=== PATIENT | male | born 1965 | race Caucasian/White ===

== ENCOUNTER 2018-12-11 22:45 | Emergency (ER) | payer OTHER ==
[~2018-12-11] VITALS: Ht 172.7 cm; Wt 125.0 kg
[2018-12-11 23:17] VITALS: BP 134/86
[2018-12-11] MEDS ORDERED: KETOROLAC TROMETHAMINE 30 MG/ML VIAL IM ONE (23:30)
== END 2018-12-11 23:45 | disposition home or self-care (01) ==
LOC: EDBD 22:46 → EMS 22:46
DX: M76.02 Gluteal tendinitis, left hip (principal); I10 Essential (primary) hypertension
CPT/HCPCS: 96372; 99283; J1885

== ENCOUNTER → 2024-07-03 | Emergency (ER) | payer OTHER ==
[~2024-07-03] VITALS: Ht 180.3 cm; Wt 113.6 kg
[2024-07-04 00:04] VITALS: TEMP 98.6
[2024-07-04] MEDS: METOCLOPRAMIDE HCL 10 MG TABLET PO ONE (01:13)
[2024-07-04] MEDS: ACETAMINOPHEN 500 MG TABLET PO ONE (01:13)
[2024-07-04] MEDS: DiphenhydrAMINE HCL 25 MG CAPSULE PO ONE (01:50)
[2024-07-04 02:20] LABS: BASOPHILS % (AUTO) 1.3 % (0.0-2.0); EOSINOPHILS % (AUTO) 3.6 % (1.0-6.0); HEMATOCRIT 39.3 % (41-53); LYMPHOCYTES # (AUTO) 2.2 K/uL (1.0-4.8); LYMPHOCYTES % (AUTO) 35.4 % (22.0-44.0); MEAN CORPUSCULAR HEMOGLOBIN 35.1 pg (26.0-34.0); MEAN CORPUSCULAR HGB CONC 35.6 G/dL (31.0-37.0); MEAN CORPUSCULAR VOLUME 99 fL (80-100); MONOCYTES # (AUTO) 0.6 K/uL (0.1-1.0); MONOCYTES % (AUTO) 9.7 % (2.0-9.0); NEUTROPHILS # (AUTO) 3.1 K/uL (1.8-7.7); PLATELET COUNT (AUTO) 141 K/uL (150-450); RED BLOOD CELL COUNT(AUTO) 3.98 MIL/uL (4.50-5.90); RED CELL DISTRIBUTION WIDTH 13.2 % (11.5-14.5); WHITE BLOOD COUNT (AUTO) 6.1 K/uL (4.5-11.0)
[2024-07-04 02:27] LABS: ANION GAP 11 mmol/L (8-16); CALCIUM, TOTAL 7.8 mg/dL (8.8-10.5); CARBON DIOXIDE 24 mmol/L (22-29); CHLORIDE 101 mmol/L (98-107); CREATININE 0.67 mg/dL (0.60-1.30); GLOMERULAR FILTR. RATE CALC > 60 mL/min (>60); GLUCOSE,RANDOM 165 mg/dL (70-110); POTASSIUM 3.1 mmol/L (3.5-5.1); SODIUM SERUM 136 mmol/L (136-145); UREA NITROGEN, BLOOD 5 mg/dL (7-18)
[2024-07-04 02:32] LABS: ALBUMIN 2.5 g/dL (3.4-5.0); BILIRUBIN,DIRECT 0.3 mg/dL (0.00-0.20); BILIRUBIN,TOTAL 0.8 mg/dL (0.1-1.0); TOTAL PROTEIN, SERUM 7.1 g/dL (6.4-8.2)
[2024-07-04] MEDS: POTASSIUM CHLORIDE 20 MEQ ER TABLET PO ONE (03:30)
[2024-07-04 04:07] VITALS: BP 130/79; PULSE 79; RESP 16; O2SAT 99
== END | disposition home or self-care (01) ==
LOC: EMS 23:49
DX: R04.0 Epistaxis (principal); R51.9 Headache, unspecified; E87.6 Hypokalemia; I10 Essential (primary) hypertension; F10.90 Alcohol use, unspecified, uncomplicated; Z86.59 Personal history of other mental and behavioral disorders; Y90.9 Presence of alcohol in blood, level not specified
CPT/HCPCS: 80048; 80076; 85025; 99284

== ENCOUNTER 2024-07-23 00:55 | Emergency (ER) | payer OTHER ==
[~2024-07-23] VITALS: Ht 180.3 cm; Wt 113.6 kg
[2024-07-23 01:17] VITALS: BP 135/73; PULSE 88; RESP 18; TEMP 98.2; O2SAT 98
== END 2024-07-23 03:31 | disposition home or self-care (01) ==
LOC: EMS 01:08
DX: R04.0 Epistaxis (principal); I10 Essential (primary) hypertension; F10.90 Alcohol use, unspecified, uncomplicated; Y90.9 Presence of alcohol in blood, level not specified
CPT/HCPCS: 99281; Z7502